=== PATIENT | male | born 1975 | race Caucasian/White ===

== ENCOUNTER 2024-09-16 06:50 | Day surgery (SDC) | payer OTHER ==
[2024-09-09 16:28] VITALS: BP 131/92
[~2024-09-16] VITALS: Ht 167.6 cm; Wt 75.0 kg
[~2024-09-16 06:50] MED LIST: LACTATED RINGER'S 1,000 ML IV SCH
[2024-09-16] MEDS ORDERED: LIDOCAINE HCL 1% 5 ML SDV INJ ONE (07:00)
[2024-09-16] MEDS ORDERED: IBLOOD GLUCOSE TEST STRIP 1 EA TEST VI PRN (07:00)
[2024-09-16 07:25] VITALS: BP 134/83
--- NOTE | 2024-09-16 08:50 | NUR ---
09/16/24 0850 Sharona Partida 0833-PATIENT ARRIVED TO PACU ON RA RR EVEN. PATIENT NONAROUSABLE LAYING LEFT LATERAL ABDOMEN SOFT. IVF INFUSING. SR HR 60'S.
[2024-09-16 13:26] VITALS: BP 121/88
== END 2024-09-16 09:25 | disposition home or self-care (01) ==
LOC: DS 06:50
PROVIDERS: ATTEND Surgery
PROC: 0DJD8ZZ Inspection of Lower Intestinal Tract, Via Natural or Artificial Opening Endoscopic (ICD-10-PCS; principal; 2024-09-16 08:20)
DX: Z12.11 Encounter for screening for malignant neoplasm of colon (principal); E78.2 Mixed hyperlipidemia
CPT/HCPCS: G0121; 00812; J2704; J7121